=== PATIENT | female | born 1975 | race African-American/Black ===

== ENCOUNTER 2017-01-20 08:00 | Emergency (ER) | payer MEDICAID ==
[2017-01-20] MEDS ORDERED: LIDOCAINE 5% (700 MG) TRANSDERMAL ADH..PATCH TP ONE (08:24)
--- NOTE | 2017-01-20 09:15 | RADIOLOGY REPORT (SQ) ---
EXAM DESCRIPTION: L SPINE WHOLE COMPLETED DATE/TIME: 01/20/2017 9:06 am REASON FOR STUDY: back pain COMPARISON: None. NUMBER OF VIEWS: Five views including obliques. TECHNIQUE: AP, lateral, oblique, and sacral radiographic images acquired of the lumbar spine. LIMITATIONS: None. FINDINGS: MINERALIZATION: Normal. SEGMENTATION: Normal. No transitional anatomy. ALIGNMENT: Normal. VERTEBRAE: Maintained height. No fracture or worrisome bone lesion. DISCS: Preserved height. No significant osteophytes or end plate irregularity. POSTERIOR ELEMENTS: Pedicles and facets are intact. No pars defect or posterior arch defects. HARDWARE: None in the spine. PARASPINAL SOFT TISSUES: Normal. PELVIS: Intact as visualized. No fractures or worrisome bone lesions. SI joints intact. OTHER: No other significant finding. IMPRESSION: NORMAL 5 VIEW LUMBAR SPINE. TECHNICAL DOCUMENTATION: JOB ID: [id number] [employer]- All Rights Reserved
--- NOTE | 2017-01-20 09:41 | ER Document Report ---
ED General - General Chief Complaint: Fall Stated Complaint: FALL/BACK PAIN Time Seen by Provider: 01/20/17 08:16 TRAVEL OUTSIDE OF THE [place] IN LAST 30 DAYS: No - HPI Patient complains to provider of: Back pain after fall Notes: Patient coming in for evaluation of back pain after a fall. Patient states that midline back pain and she had a slip and fall at local [facility]. Patient also concerned about a personnel that broke off on her ring finger on the right- hand side. Patient denies any loss consciousness injury occurred approximately 4 hours prior to arrival here to the ER. States no relief with ice packs denies taking Tylenol Motrin. Patient was able ambulate into the ER denies any numbness or tingling. Patient states pain does get down the back of her legs sharp and shooting No bowel bladder incontinence no saddle anesthesias - Related Data Allergies/Adverse Reactions: No Known Allergies Allergy (Unverified 01/20/17 08:05) Past Medical History - Social History Smoking Status: Current Every Day Smoker Chew tobacco use (# tins/day): No Frequency of alcohol use: None Drug Abuse: None Family History: Reviewed & Not Pertinent Patient has suicidal ideation: No Patient has homicidal ideation: No - Past Medical History Cardiac Medical History: Reports: Hx Hypertension Renal/ Medical History: Denies: Hx Peritoneal Dialysis Review of Systems - Review of Systems Constitutional: No symptoms reported EENT: No symptoms reported Cardiovascular: No symptoms reported Respiratory: No symptoms reported Gastrointestinal: No symptoms reported Genitourinary: No symptoms reported Female Genitourinary: No symptoms reported Musculoskeletal: Back pain Skin: No symptoms reported Hematologic/Lymphatic: No symptoms reported Neurological/Psychological: No symptoms reported -: Yes All other systems reviewed and negative Physical Exam - Vital signs Vitals: Temp Pulse Resp BP Pulse Ox 98.2 F 97 18 150/96 H 99 01/20/17 08:05 01/20/17 08:05 01/20/17 08:05 01/20/17 08:05 01/20/17 08:05 Interpretation: Normal - General General appearance: Appears well, Alert - HEENT Head: Normocephalic, Atraumatic Eyes: Normal Pupils: PERRL - Respiratory Respiratory status: No respiratory distress Chest status: Nontender Breath sounds: Normal Chest palpation: Normal - Cardiovascular Rhythm: Regular Heart sounds: Normal auscultation Murmur: No - Abdominal Inspection: Normal Distension: No distension Bowel sounds: Normal Tenderness: Nontender Organomegaly: No organomegaly - Back Back: Normal, Tender - Midline tenderness to palpation of the patient's back L3 and L4 - Extremities General upper extremity: Normal inspection, Nontender, Normal color, Normal ROM , Normal temperature General lower extremity: Normal inspection, Nontender, Normal color, Normal ROM , Normal temperature, Normal weight bearing. No: Seth's sign - Neurological Neuro grossly intact: Yes Cognition: Normal Orientation: AAOx4 Presto Coma Scale Eye Opening: Spontaneous Ezekiel Coma Scale Verbal: Oriented Presto Coma Scale Motor: Obeys Commands Presto Coma Scale Total: 15 Speech: Normal Motor strength normal: LUE, RUE, LLE, RLE Sensory: Normal - Psychological Associated symptoms: Normal affect, Normal mood - Skin Skin Temperature: Warm Skin Moisture: Dry Skin Color: Normal Course - Re-evaluation Re-evalutation: 01/20/17 14:28 The patient presents with low back pain without signs of spinal cord compression , cauda equina syndrome, infection, aneurysm, or other serious etiology. The patient is neurologically intact. Given the extremely low risk of these diagnoses further testing and evaluation for these possibilities does not appear to be indicated at this time. The patient has been instructed to return if the symptoms worsen or change in any way. - Vital Signs Vital signs: Temp Pulse Resp BP Pulse Ox 97.8 F 83 12 114/89 H 98 01/20/17 09:51 01/20/17 09:51 01/20/17 09:51 01/20/17 09:51 01/20/17 09:51 Discharge - Discharge Clinical Impression: Back pain Qualifiers: Back pain location: low back pain Chronicity: acute Back pain laterality: midline Sciatica presence: with sciatica Sciatica laterality: bilateral sciatica Qualified Code(s): M54.42 - Lumbago with sciatica, left side Condition: Good Disposition: HOME, SELF-CARE Instructions: Low Back Pain ([facility]), Oral Narcotic Medication ([facility]), Anti- Inflammatory Medication ([facility]) Additional Instructions: Take medication as prescribed. Recommend to continue to use the ice packs you may also use warm packs for pain control. If you do receive good pain relief with the Lidoderm patch and we gave you here in the ER he may ask her pharmacist about [id number] lidocaine patches and creams. Return to the ER symptoms worsen I recommend she follow-up with your physician in 5-7 days per Prescriptions: Ibuprofen [Motrin 600 Mg Tablet] 600 mg PO TID #30 tablet Tramadol HCl [Ultram 50 mg Tablet] 50 mg PO ASDIR PRN #20 tablet PRN Reason: Forms: Return to Work
[2017-01-20 09:53] VITALS: BP 114/89
== END 2017-01-20 09:58 | disposition home or self-care (01) ==
LOC: ER 08:00
DX: M54.42 Lumbago with sciatica, left side (principal); W01.0XXA Fall on same level from slipping, tripping and stumbling without subsequent striking against object, initial encounter; Y92.512 Supermarket, store or market as the place of occurrence of the external cause; F17.200 Nicotine dependence, unspecified, uncomplicated; I10 Essential (primary) hypertension
CPT/HCPCS: 99283; 72110; J3490

== ENCOUNTER → 2019-09-12 | Outpatient (CLI) | payer OTHER ==
--- NOTE | 2019-09-12 14:03 | WOMENS IMAGING REPORT ---
EXAM DESCRIPTION: U/S BREAST UNILAT LIMITED COMPLETED DATE/TIME: 09/12/2019 1:30 pm REASON FOR STUDY: N61.1 ABSCESS OF THE BREAST AND NIPPLE COMPARISON: None. TECHNIQUE: Real-time and static grayscale imaging performed of the left breast targeted to the area of clinical/mammographic concern, 3 -6 o'clock location and 7-8 o'clock location. Selected color Dopp ler images recorded. LIMITATIONS: None. FINDINGS: MASS: There are two areas of clinical infection, lateral breast and lower inner breast. B oth demonstrate skin thickening and hypoechoic density in the subcutaneous tissues. In the lower inn er breast the area measures approximately 9 mm in depth and 3.3 cm transverse. In the lateral breast the area measures 4 mm in depth. Diffuse increased vascularity. No discrete fluid collection. OTHER: No other significant finding. IMPRESSION: Areas in the lateral breast and lower inner breast characteristic of skin and subcutaneo us tissue inflammation and infection. No focal drainable abscess at this time. BIRAD: 2 Benign findings. RECOMMENDATION: RECOMMENDED FOLLOW-UP: Follow-up as clinically indicated. COMMENT: The [employer] ([employer]) has developed recommendations for screening MRI of the breasts in certain patient populations, to be used in conjunction with mammography. Breast MRI s urveillance may be appropriate for women with more than 20% lifetime risk of developing breast cancer as determined by genetic testing, significant family history of the disease, or history of mantle r adiation for Hodgkins Disease. [employer]CR Practice Guidelines 2008. TECHNICAL DOCUMENTATION: JOB ID: [id number] [employer]- All Rights Reserved Reading location - IP/workstation name: [email or web address]
== END ==
LOC: WI 12:50
PROVIDERS: ATTEND Registered Nurse
DX: N61.1 Abscess of the breast and nipple (principal)
CPT/HCPCS: 76642